=== PATIENT | female | born 1990 | race Caucasian/White ===

== ENCOUNTER 2016-11-30 15:47 | Inpatient (IN) | payer OTHER ==
[~2016-11-30] VITALS: Ht 172.7 cm; Wt 86.7 kg
[~2016-11-30 15:47] MED LIST: COLACE 100MG C100 MG PO
[2016-11-30 17:41] LABS: RED BLOOD COUNT 3.87 M/UL (4.00-5.10); WHITE BLOOD COUNT 20.3 K/UL (4.5-11.0)
[2016-11-30 17:57] LABS: BUN/CREATININE RATIO 11 (0-10)
[2016-11-30] MEDS ORDERED: CITALOPRAM HBR40 MG PO (23:25)
[2016-11-30] MEDS ORDERED: PROTONIX40 MG PO (23:27)
[2016-11-30] MEDS ORDERED: DICLOXACILLIN500 MG PO (23:27)
[2016-11-30] MEDS ORDERED: TOPIRAMATE25 MG PO (23:28)
[2016-11-30] MEDS ORDERED: FOLIC ACID 1 MG1 MG PO (23:31)
[2016-12-02 06:07] LABS: ADENOVIRUS F 40/41 Not Detected (Negative); ASTROVIRUS Not Detected (Negative); CAMPYLOBACTER Not Detected (Negative); CRYPTOSPORIDIUM Not Detected (Negative); E.COLI 0157 Not Detected (Negative); ENTAMOEBA HISTOLYTICA Not Detected (Negative); ENTEROAGGREGATIVE E.COLI (EAEC Not Detected (Negative); ENTEROPATHOGENIC E.COLI (EPEC) Not Detected (Negative); ENTEROTOXIGENIC E.COLI (ETEC) Not Detected (Negative); GIARDIA LAMBLIA Not Detected (Negative); NOROVIRUS GI/GII Not Detected (Negative); PLESIOMONAS SHIGELLOIDES Not Detected (Negative); ROTOVIRUS A Not Detected (Negative); SALMONELLA Not Detected (Negative); SAPOVIRUS Not Detected (Negative); SHIG/ENTEROINVAS.ECOLI (EIEC) Not Detected (Negative); SHIGA-LIK TOX.PRO.E.COLI (STEC Not Detected (Negative); VIBRIO Not Detected (Negative); VIBRIO CHOLERAE Not Detected (Negative); YERSINIA ENTEROCOLITICA Not Detected (Negative)
[2016-12-02 07:02] LABS: HEMOGLOBIN 8.3 gm/dl (12.3-15.3); WHITE BLOOD COUNT 11.9 K/UL (4.5-11.0)
[2016-12-02 10:19] LABS: CLOSTRIDIUM DIFFICILE TOX A/B DETECTED (Negative)
[2016-12-03 04:42] LABS: HEMOGLOBIN 8.3 gm/dl (12.3-15.3); RED BLOOD COUNT 2.96 M/UL (4.00-5.10); WHITE BLOOD COUNT 14.1 K/UL (4.5-11.0)
[2016-12-04 04:33] LABS: HEMOGLOBIN 8.4 gm/dl (12.3-15.3); RED BLOOD COUNT 3.05 M/UL (4.00-5.10)
[2016-12-04 04:34] LABS: WHITE BLOOD COUNT 10.5 K/UL (4.5-11.0)
[2016-12-05] MEDS ORDERED: LEVAQUIN750 MG PO (13:55)
[2016-12-05] MEDS ORDERED: FERROUS SULFAT325 MG PO (13:55)
[2016-12-05] MEDS ORDERED: VANCOCIN 125MG/2.5ML PO (13:59)
== END 2016-12-05 15:35 | disposition home or self-care (01) | DRG 871 ==
LOC: ER1 15:47 → ZEROF 19:15 → MED SURG 4 19:15
PROVIDERS: Emergency Medicine; Family Medicine; ADMIT Internal Medicine
DX: A41.9 Sepsis, unspecified organism (principal); J18.9 Pneumonia, unspecified organism; A04.7 Enterocolitis due to Clostridium difficile; N17.9 Acute kidney failure, unspecified; Y95 Nosocomial condition; D50.9 Iron deficiency anemia, unspecified; Z88.2 Allergy status to sulfonamides; F41.9 Anxiety disorder, unspecified; Z86.19 Personal history of other infectious and parasitic diseases
CPT/HCPCS: 36415; 71020; 71260; 80048; 80053; 80202; 80307; 81001; 82150; 82607; 82728; 82746; 83540; 83550; 83605; 83690; 83735; 84466; 85025; 85027; 85045; 87040; 87045; 87046; 87070; 87177; 87205; 87507; 89055; 94640; 94664; 96361; 96374; 96375; 99285; J1650; J1756; J2270; J2405; J2543; J3370; J7030; J7050; J7070; Q9962

== ENCOUNTER 2016-12-19 15:38 | Inpatient (IN) | payer OTHER ==
[~2016-12-19 15:38] MED LIST changes: +CITALOPRAM HBR40 MG PO; +DICLOXACILLIN500 MG PO; +FERROUS SULFAT325 MG PO; +FOLIC ACID 1 MG1 MG PO; +LEVAQUIN750 MG PO; +PROTONIX40 MG PO; +TOPIRAMATE25 MG PO; +VANCOCIN 125MG/2.5ML PO
[2016-12-19 17:25] LABS: HEMOGLOBIN 12.4 gm/dl (12.3-15.3); RED BLOOD COUNT 4.41 M/UL (4.00-5.10); WHITE BLOOD COUNT 11.7 K/UL (4.5-11.0)
[2016-12-19 17:41] LABS: BUN/CREATININE RATIO 13 (0-10)
[2016-12-20] MEDS ORDERED: WELLBUTRIN XL150 M1 PO (00:54)
[2016-12-20] MEDS ORDERED: FLEXERIL 10 MG10 MG PO (00:54)
[2016-12-20 04:52] LABS: HEMOGLOBIN 11.6 gm/dl (12.3-15.3); RED BLOOD COUNT 4.15 M/UL (4.00-5.10); WHITE BLOOD COUNT 10.5 K/UL (4.5-11.0)
[2016-12-20 05:03] LABS: BUN/CREATININE RATIO 13 (0-10)
[2016-12-20] MEDS ORDERED: LOPRESSOR 25 MG25 MG PO (23:26)
[2016-12-21 05:39] LABS: BUN/CREATININE RATIO 15 (0-10)
[2016-12-21] MEDS ORDERED: KEPPRA500 MG PO (13:26)
== END 2016-12-21 14:10 | disposition home or self-care (01) | DRG 101 ==
LOC: ER1 15:38 → ZEROF 22:54 → MED SURG 4 22:54 → ER1 23:18 → MED SURG 4 23:24
PROVIDERS: Emergency Medicine; Family Medicine; ADMIT Internal Medicine
DX: G40.909 Epilepsy, unspecified, not intractable, without status epilepticus (principal); J98.11 Atelectasis; J90 Pleural effusion, not elsewhere classified; E87.6 Hypokalemia; Z86.14 Personal history of Methicillin resistant Staphylococcus aureus infection; Z86.19 Personal history of other infectious and parasitic diseases; F32.9 Major depressive disorder, single episode, unspecified; Z90.49 Acquired absence of other specified parts of digestive tract; Z88.2 Allergy status to sulfonamides; Z87.891 Personal history of nicotine dependence; Z87.898 Personal history of other specified conditions; Z87.01 Personal history of pneumonia (recurrent); Z95.2 Presence of prosthetic heart valve; Z79.899 Other long term (current) drug therapy
CPT/HCPCS: ECHO; 36415; 70450; 70551; 71010; 80048; 80053; 80307; 81001; 82550; 82553; 83735; 83874; 84100; 84132; 84439; 84443; 84484; 85025; 87040; 93005; 93306; 95816; 96374; 96375; 99285; J0360; J1650; J1885; J1953; J2060; J7050

== ENCOUNTER 2017-01-01 11:40 | Emergency (ER) | payer OTHER ==
[~2017-01-01 11:40] MED LIST changes: +FLEXERIL 10 MG10 MG PO; +KEPPRA500 MG PO; +LOPRESSOR 25 MG25 MG PO; +WELLBUTRIN XL150 M1 PO
[2017-01-01 13:49] LABS: HEMOGLOBIN 13.6 gm/dl (12.3-15.3); RED BLOOD COUNT 4.84 M/UL (4.00-5.10); WHITE BLOOD COUNT 9.7 K/UL (4.5-11.0)
[2017-01-01 14:19] LABS: BUN/CREATININE RATIO 31 (0-10)
== END 2017-01-01 22:19 | disposition home or self-care (01) ==
LOC: ER1 11:40
PROVIDERS: Family Medicine
DX: R56.9 Unspecified convulsions (principal); G43.909 Migraine, unspecified, not intractable, without status migrainosus; M54.2 Cervicalgia; I10 Essential (primary) hypertension; Z79.899 Other long term (current) drug therapy; Z88.2 Allergy status to sulfonamides
CPT/HCPCS: 36415; 70450; 71010; 80053; 80307; 81001; 82550; 82553; 83874; 84484; 84703; 85025; 93005; 96374; 96375; 99285; J1200; J1885; J2765; J7030